=== PATIENT | female | born 1995 | race Caucasian/White ===

== ENCOUNTER → 2018-09-16 | Outpatient (CLI) | payer BC ==
[2018-09-16 19:04] LABS: BASO % 0.3 % (0.0-1.0); EOS # 0.2 10^3/uL (0.0-0.50); EOS % 1.9 % (0.0-3.0); HEMATOCRIT 39.2 % (36.0-47.0); HEMOGLOBIN 13.2 g/dl (12.0-15.5); LYMPH # 1.7 10^3/uL (1.5-6.5); LYMPH % 22.4 % (24.0-44.0); MEAN CORPUSCULAR HEMOGLOBIN 28.1 pg (27.0-33.0); MEAN CORPUSCULAR HGB CONC 33.7 g/dl (32.0-36.5); MEAN CORPUSCULAR VOLUME 83.6 fl (80.0-96.0); MONO # 0.4 10^3/uL (0.0-0.8); MONO % 5.4 % (0.0-5.0); NEUTROPHILS # 5.4 10^3/uL (1.8-7.7); NEUTROPHILS % 69.9 % (36.0-66.0); PLATELET COUNT, AUTOMATED 217 10^3/uL (150-450); RED BLOOD COUNT 4.69 10^6/uL (4.00-5.40); WHITE BLOOD COUNT 7.7 10^3/uL (4.0-10.0)
[2018-09-16 21:30] LABS: CHLAMYDIA DNA AMPLIFICATION NEGATIVE (NEGATIVE); GC DNA AMPLIFICATION NEGATIVE (NEGATIVE)
[2018-09-17 11:08] LABS: HIV 1&2 SCREEN CENTAUR NEGATIVE (NEGATIVE); RUBELLA IgG QUALITATIVE IMMUNE (IMMUNE)
== END ==
LOC: M SMT 15:51
PROVIDERS: ATTEND Advanced Practice Midwife
DX: Z36.89 Encounter for other specified antenatal screening (principal); Z3A.08 8 weeks gestation of pregnancy

== ENCOUNTER → 2018-10-15 | Outpatient (REF) | payer BC, OTHER | LOC: M LAB REF 13:03 | PROVIDERS: ATTEND Advanced Practice Midwife | DX: Z34.01 Encounter for supervision of normal first pregnancy, first trimester (principal); Z3A.00 Weeks of gestation of pregnancy not specified | CPT/HCPCS: 87086; G0123 ==

== ENCOUNTER → 2018-12-08 | Outpatient (REF) | payer BC | LOC: M LAB REF 17:23 | PROVIDERS: ATTEND Advanced Practice Midwife | DX: Z34.02 Encounter for supervision of normal first pregnancy, second trimester (principal); Z3A.00 Weeks of gestation of pregnancy not specified ==

== ENCOUNTER → 2018-12-09 | Outpatient (CLI) | payer BC ==
--- NOTE | 2018-12-10 08:13 | REP ---
OBSTETRIC SONOGRAPHY: HISTORY: Supervision of . For anatomy. Second trimester study. FINDINGS: Scanning through the gravid uterus demonstrates a viable single intrauterine gestation in a breech lie. motion is observed, and heart rate is recorded at 149 beats per minute. An anterior grade 0 placenta is seen without evidence of previa or abruption. Amniotic fluid is subjectively normal. Closed cervical length is measured transabdominally at 3.5 cm. No extrauterine abnormality is observed. Exam quality was inhibited some degree by position. No anomaly is seen. nose and lips are seen but facial profile is less than adequately seen. Similarly, less than optimal visualization is achieved in the right ventricular cardiac outflow tract and both lower extremities. The following additional anatomic structures are identified and felt to be unremarkable: cranium, choroid plexus, cavum, cerebellum and posterior fossa, lungs, four-chamber heart with left ventricular outflow tract view, diaphragm, left-sided stomach, abdominal wall cord insertion, three-vessel umbilical cord, kidneys and bladder, spine, upper extremities. BIOMETRY CHART: BPD 4.8 cm = 20 weeks 4 days Head circumference 17.7 cm = 20 weeks 1 day Abdominal circumference 16.1 cm = 21 weeks 2 days Femur length 3.4 cm = 20 weeks 5 days Humeral length 3.3 cm = 21 weeks 2 days HC/AC ratio normal 1.10 Cephalic index normal 0.76 Estimated weight 385 grams, 0 pounds 13 ounces, 76 percentile for 20 weeks 1 day. IMPRESSION: Viable single intrauterine gestation at 20 weeks 6 days by today's composite criteria. WILLIS by today's sonography April 22, 2019. facial profile, right ventricular cardiac outflow tract, and lower extremity views are less than optimally achieved today. Breech lie. Electronically Signed by Robbie Johnson MD 12/10/2018 09:13 A
== END ==
LOC: M RAD 16:07
PROVIDERS: ATTEND Obstetrics & Gynecology
DX: Z34.82 Encounter for supervision of other normal pregnancy, second trimester (principal); Z3A.20 20 weeks gestation of pregnancy; O32.1XX1 Maternal care for breech presentation, fetus 1

== ENCOUNTER → 2019-01-23 | Outpatient (CLI) | payer BC ==
--- NOTE | 2019-01-24 09:17 | REP ---
OB FOLLOWUP ULTRASOUND: HISTORY: Followup anatomy. COMPARISON: 12/09/2018 A single intrauterine is present in breech presentation. Biparietal diameter 6.9 cm, gestational age 27 weeks 6 days. Head circumference 25 cm, gestational age 27 weeks 1 day. Abdominal circumference 21.7 cm, gestational age 26 weeks 1 day. Femur length 4.7 cm, gestational 25 weeks, 6 days. Humerus length 4.4 cm, gestational age 26 weeks 3 days. heart rate is 163 beats per minute. weight is 912 grams. Visualized anatomy is normal. The placenta is anterior. There is no placenta previa or abruption. The amniotic fluid is within normal limits. Cervix length is 3.5 cm. IMPRESSION: A single intrauterine is present in breech presentation. Gestational age by ultrasound is 26 weeks 5 days. Electronically Signed by Jacky Archer MD 01/24/2019 09:27 A
== END ==
LOC: M RAD 15:18
PROVIDERS: ATTEND Obstetrics & Gynecology
DX: Z34.02 Encounter for supervision of normal first pregnancy, second trimester (principal)

== ENCOUNTER → 2019-02-06 | Outpatient (CLI) | payer BC | LOC: M LAB 16:08 | PROVIDERS: ATTEND Advanced Practice Midwife | DX: Z34.02 Encounter for supervision of normal first pregnancy, second trimester (principal); Z3A.00 Weeks of gestation of pregnancy not specified | CPT/HCPCS: 36415; 86850; 86901; J2790 ==

== ENCOUNTER → 2019-04-01 | Outpatient (REF) | payer BC ==
[~2019-04-01] MED LIST: ACET-683 PO; ALLE24TA7 PO; IBUP80TA PO; PRENTAB9 PO
== END ==
LOC: M LAB REF 17:13
PROVIDERS: ATTEND Advanced Practice Midwife
DX: Z34.03 Encounter for supervision of normal first pregnancy, third trimester (principal); Z3A.00 Weeks of gestation of pregnancy not specified

== ENCOUNTER 2019-04-27 13:20 | Inpatient (IN) | payer BC ==
[2019-04-27] VITALS (25 sets, daily range): BP systolic 96–165; BP diastolic 49–87
[~2019-04-27] VITALS: Ht 165.1 cm; Wt 106.0 kg
[2019-04-27] MEDS ORDERED: PENICILLIN G POTASSIUM IV 5 MU in D5W MINI-BAG PLUS 100 ML IV STA (13:38)
[2019-04-27] MEDS ORDERED: PRENTAB9 PO (13:42)
[2019-04-27] MEDS ORDERED: OXYTOCIN DRIP 30 UNITS in APPROPRIATE DILUENT 1 EA IV SCH (13:45)
[2019-04-27 15:18] LABS: HEMATOCRIT 34.7 % (36.0-47.0); HEMOGLOBIN 11.6 g/dl (12.0-15.5); MEAN CORPUSCULAR HGB CONC 33.4 g/dl (32.0-36.5); MEAN CORPUSCULAR VOLUME 86.8 fl (80.0-96.0); PLATELET COUNT, AUTOMATED 151 10^3/uL (150-450); WHITE BLOOD COUNT 9.5 10^3/uL (4.0-10.0)
[2019-04-27] MEDS ORDERED: ALLE24TA7 PO (15:35)
[2019-04-27] MEDS: LR 1,000 ML IV SCH ×2 (15:38→23:51)
[2019-04-27 15:58] LABS: ALT/SGPT 14 U/L (12-78); BILIRUBIN,TOTAL 0.4 MG/DL (0.2-1.0); CREATININE FOR GFR 0.54 MG/DL (0.55-1.30); GLOMERULAR FILTRATION RATE > 60.0 (>60); LDH LACTATE DEHYDROGENASE 203 U/L (84-246); URIC ACID 3.6 MG/DL (2.6-6.0)
--- NOTE | 2019-04-27 16:52 | HPE ---
DATE OF ADMISSION: 04/27/2019 HISTORY OF THE PRESENT ILLNESS: The patient is a 23-year-old female who is a 1, para 0 at 40 weeks gestation with an estimated date of delivery (WILLIS) of 04/27/2019 based off of her last menstrual period (LMP) and consistent with her first trimester ultrasound. The patient initiated care in her first trimester with [facility]. Patient care has been uncomplicated. She presents to the office today with complaints of spontaneous rupture of membranes and clear fluid at 10:00 a.m. this morning. She denies any regular contractions. Patient reports fluid is clear with large gushes. Denies vaginal bleeding. Reports active movement. ALLERGIES: ZITHROMAX and CLINDAMYCIN. CURRENT MEDICATIONS: - vitamins - loratadine 10 mg PAST MEDICAL HISTORY: Asthma as a child. Varicella as a child. No current medications. SURGICAL HISTORY: [place] teeth extraction. FAMILY HISTORY: Lupus, diabetes, hypertension, heart disease. SOCIAL HISTORY: The patient is . She denies any history of being a smoker. She denies any history of alcohol abuse during . She does report occasional use of alcohol prior to . She denies any history of illicit drug use during or prior to . She denies any history of abuse. She denies any history of any sexually transmitted infection. LABS: The patient's blood type is O negative with an antibody screen that is negative. Her hemoglobin and hematocrit in her first trimester was 13.2, 39.2 with platelets of 217. Her Pap smear, which was done 10/14/2018 was normal. Rubella is immune. VDRL is nonreactive. Her urine specimen was contaminated. Her hepatitis B surface antigen is negative. HIV is negative. Hepatitis C is negative. Gonorrhea and chlamydia are both negative. She declined genetic screening and carrier screen testing. Her 1-hour glucose tolerance test was 116. Her hemoglobin and hematocrit and her early third trimester was 11.4 and 34 with platelets of 181. She received her RhoGam on 02/13/2019. HIV in the third trimester is negative with a GBS that is positive. VITAL SIGNS: Temperature is 99, heart rate is 70, respiratory rate is 18, blood pressure is 142/77. heart rate 130, moderate variability, positive accelerations, no decelerations. Contractions are irregular. Sterile speculum exam (SSE) done in the office shows a large amount of clear fluid in the vaginal vault. Sterile vaginal exam (SVE): 2 cm dilated, 90% effaced, -2 station. PHYSICAL ASSESSMENT: General: Alert and oriented times three. Respiratory: Regular rate with no use of accessory muscles. Abdomen: Gravid. Cephalic presentation noted via Rickey's and SVE. Nontender to touch. Lower Extremities: Generalized edema. No clonus. ASSESSMENT: Intrauterine at 40 weeks gestation, GBS positive, category 1 heart rate tracing, spontaneous rupture of membranes. PLAN: Admit patient to labor and delivery. Out of bed ad antonina. Saline lock and labs per unit protocol. Clear liquid diet. IV Pitocin options offered to patient due to ruptured membranes. Reviewed with prolonged ruptured increased risk for fever and chorioamnionitis. Antibiotics to be started for Group B Streptococcus (GBS) prophylaxis. Preeclamptic profile ordered due to slightly elevated blood pressure. Will continue to monitor. Anticipate cervical change and spontaneous vaginal delivery. Anesthesia consult per patient's request.
--- NOTE | 2019-04-27 19:03 | IPNPDOC ---
Obstetrical Progress Note Date of Service Apr 27, 2019 Subjective Patient reports she is feeling her contractions. Desires to learn more about pain management options. Objective Vital Signs Date Time Temp Pulse Resp B/P (MAP) Pulse Ox O2 Delivery O2 Flow Rate FiO2 04/27/19 18:37 99.4 76 20 141/76 (97) Assessment Heart Rate (FHR): 140 Variability: Moderate Accelerations: Positive Decelerations: Early Heart Rate Tracing: Category I Tocometer Contractions: Yes Frequency: regular, other (1-4 minutes) Sterile Vaginal Examination Dilation: 4 cm (4-5 cm) Effacement (%): 100% Station: -1 Postion/Presentation: Cephalic presentation Assessment and Plan Age: 23 : 1 Term: 0 Pre-term: 0 Abortions: 0 Livin EGA at Admission: 40 Status: Reassuring Group B Streptococcus: Positive Anticipate: Vaginal Delivery Additional Comments Options reviewed with patient for pain management. Patient undecided at this time. GHTN diagnosed. Preeclamptic labs are normal at this time. HEMA GONSALES CNM Apr 27, 2019 19:03
[2019-04-27] MEDS ORDERED: PROMETHAZINE INJ 25 MG/ML VIAL (J2550) IV ONE (19:15)
[2019-04-27] MEDS ORDERED: BUTORPHANOL 2 MG/ML INJ (J0595) IV ONE (19:15)
[2019-04-27] MEDS: PENICILLIN G POTASSIUM IV 2.5 MU in APPROPRIATE DILUENT 1 EA IV SCH ×2 (19:50→23:51)
[2019-04-27] MEDS ORDERED: diphenhydrAMINE INJ 50MG/ML VIAL (J1200) IV ONE (20:00)
[2019-04-27] MEDS ORDERED: FENTANYL 2MCG/ML ROPIVACAINE 0.2% IN 0.9% NACL 100ML IVBAG As Ordered ONE (22:11)
[2019-04-27] MEDS ORDERED: ePHEDrine SULFATE 25 MG/5 ML(5MG/ML) SYRINGE As Ordered ONE (23:36)
[2019-04-27] MEDS ORDERED: LACTATED RINGER'S 1000 ML IV PRN (23:45)
[2019-04-27] MEDS ORDERED: FENTANYL/ROPIVACAINE/NACL BAG 100 ML EPIDURAL SCH (23:45)
[2019-04-27] MEDS ORDERED: EPIDURAL/PCA KEYS XX PRN (23:45)
[2019-04-27] MEDS ORDERED: ePHEDrine SULFATE 25 MG/5 ML(5MG/ML) SYRINGE IV PRN (23:45)
[2019-04-27] MEDS ORDERED: NALOXONE INJ 0.4 MG/1 ML VIAL (J2310) IV PRN (23:45)
[2019-04-27] MEDS ORDERED: REFRIGERATOR IV KEYS XX PRN (23:45)
[2019-04-27] MEDS ORDERED: EPIDURAL COMMENT XX SCH (23:45)
[2019-04-27] MEDS ORDERED: ONDANSETRON 4MG/2ML VIAL (J2405) IV PRN (23:45)
[2019-04-27] MEDS ORDERED: diphenhydrAMINE INJ 50MG/ML VIAL (J1200) IV PRN (23:45)
[2019-04-28] VITALS (29 sets, daily range): BP systolic 108–149; BP diastolic 53–64
--- NOTE | 2019-04-28 00:15 | IPNPDOC ---
Obstetrical Progress Note Date of Service Apr 28, 2019 Subjective Patient reports she is comfortable with her epidural. Objective Vital Signs Date Time Temp Pulse Resp B/P (MAP) Pulse Ox O2 Delivery O2 Flow Rate FiO2 04/27/19 19:45 18 04/27/19 18:37 99.4 76 141/76 (97) Assessment Heart Rate (FHR): 150 Variability: Minimal to moderate Accelerations: None Decelerations: Late Heart Rate Tracing: Category I Tocometer Contractions: Yes Frequency: regular Sterile Vaginal Examination Dilation: complete Station: Other (0 to +1) Postion/Presentation: Cephalic presentation Assessment and Plan EGA at Admission: 40 Status: Reassuring Group B Streptococcus: Positive Anticipate: Vaginal Delivery Additional Comments Category II tracing after epidural. Has continued to improve with position change, oxygen, and fluid bolus. Will continue to observe and will start pushing soon. Reviewed potential for section if HR does not improve. Patient and verbalized understanding. HEMA GONSALES CNM Apr 28, 2019 00:15
[2019-04-28] MEDS ORDERED: ACETAMINOPHEN 500 MG TAB PO ONE (01:15)
--- NOTE | 2019-04-28 02:04 | IPNPDOC ---
Obstetrical Progress Note Date of Service Apr 28, 2019 Subjective Patient is pushing well with contractions. Objective Vital Signs Date Time Temp Pulse Resp B/P (MAP) Pulse Ox O2 Delivery O2 Flow Rate FiO2 04/27/19 19:45 18 04/27/19 18:37 99.4 76 141/76 (97) Assessment Heart Rate (FHR): 170 Variability: Minimal Accelerations: None Decelerations: Variable Heart Rate Tracing: Category II Tocometer Contractions: Yes Frequency: regular Assessment and Plan EGA at Admission: 40 Weeks & Days 40.1 Status: Non-reassuring Additional Comments IV Pitocin is at 2 mu/min. Dr. Rosenberg notified of tachycardia with minimal variability. He will be in to access patient. Patient pushing well. tachycardia for 30 minutes. Temporal temperature 101.6 but oral taken and 99.6. Given Tylenol PO 1000 mg. HEMA GONSALES CNM Apr 28, 2019 02:04
[2019-04-28 03:45] LABS: CORD GAS ABE A -12.5; CORD GAS HCO3 A 16.3 MEQ/L; CORD GAS O2 SAT A 45.8 %; CORD GAS PCO2 A 47.8 mmHg; CORD GAS PH A 7.15 UNITS; CORD GAS PO2 A 25.7 mmHg; CORD GAS SBC A 13.9 MEQ/L; CORD GAS TCO2 A 17.7 MEQ/L
[2019-04-28 03:46] LABS: CORD GAS ABE V -11.2; CORD GAS HCO3 V 15.2 MEQ/L; CORD GAS O2 SAT V 59.5 %; CORD GAS PH V 7.244 UNITS; CORD GAS PO2 V 29.1 mmHg; CORD GAS SBC V 15.1 MEQ/L; CORD GAS TCO2 V 16.3 MEQ/L
[2019-04-28] MEDS ORDERED: OXYTOCIN DRIP 30 UNITS in APPROPRIATE DILUENT 1 EA IV SCH (04:06)
[2019-04-28] MEDS ORDERED: IBUPROFEN 600 MG TAB PO PRN (04:15)
[2019-04-28] MEDS ORDERED: METHYLERGONOVINE MALEATE 0.2 MG TAB PO PRN (04:15)
[2019-04-28] MEDS ORDERED: DOCUSATE SODIUM 100 MG CAP PO PRN (04:15)
[2019-04-28] MEDS ORDERED: DIBUCAINE 1% OINTMENT 30GM TOP PRN (04:15)
[2019-04-28] MEDS ORDERED: ANUSOL HC CREAM 30GM TOP PRN (04:15)
[2019-04-28] MEDS ORDERED: RHOGAM 300 MCG (1500 IU) INJ (J2790) IM SCH (04:15)
[2019-04-28] MEDS ORDERED: MEASLES,MUMPS,RUBELLA VACCINE INJ (MMR-II) (90707) SC SCH (04:15)
[2019-04-28] MEDS ORDERED: ACETAMINOPHEN TAB 650MG DOSE (2X325MG) PO PRN (04:15)
[2019-04-28] MEDS: ACETAMINOPHEN 500 MG TAB PO PRN ×2 (06:13→13:35)
[2019-04-28] MEDS: PRENATAL VITAMINS CHEWABLE TABLET PO SCH (08:08)
--- NOTE | 2019-04-28 10:50 | DN ---
DATE OF DELIVERY: 04/28/2019 TIME: 0326 STATUS: Delivered. Spontaneous vaginal delivery. PROVIDER: Leigh Ann Michael CNM, CARLENE ANESTHESIA: Epidural. ESTIMATED BLOOD LOSS: 250 mL. FINDINGS: Male, 7 pounds 13 ounces, 3542 grams, Apgars 6/7/8, multiple variable decelerations, tachycardia, multiple late decelerations. The patient is a 23-year-old female, who is now a 1, para 1-0-0-1, who presented to the office with complaints of spontaneous rupture of membrane. She received IV Pitocin to help augment her labor. The patient also received an epidural for pain management. She progressed to fully dilated at 2354 and started pushing at 0104. Dr. Rosenberg was notified of patient's strip and present during second half of the pushing stage and for delivery of the fetus. The patient pushed to a living male in the right occiput transverse (ROT) position at 0326. The anterior shoulder delivered with ease and the corpus immediately followed. The baby was placed on the maternal abdomen and was brought over to the warming table by the nurses for further assessment. This was all done after the cord was clamped times two and cut by the father of the baby. Cord gases were obtained. The arterial cord gas was 7.15 and venous cord gas was 7.244. The placenta delivered spontaneously and intact at 0331. Uterine hemostasis was achieved via rapid infusion of IV Pitocin and fundal massage. The vagina, cervix and perineum was inspected and found to have a second degree perineal laceration that was repaired with a 3-[address]-1. The baby was transported to the intensive care unit (NICU) for further observation and for transitional timing. Mom and baby are both in stable condition. All counts of instruments and sponges were correct and accounted for. Mom plans to breast feed her .
[2019-04-28] MEDS: IBUPROFEN 800 MG TAB PO PRN (19:55)
[2019-04-29 01:49] VITALS: BP 107/54
[2019-04-29 06:00] VITALS: BP 122/58
[2019-04-29] MEDS ORDERED: IBUP80TA PO (06:45)
[2019-04-29] MEDS ORDERED: ACET-683 PO (06:45)
[2019-04-29] MEDS: IBUPROFEN 800 MG TAB PO PRN (08:09)
[2019-04-29] MEDS: PRENATAL VITAMINS CHEWABLE TABLET PO SCH (08:09)
[2019-04-29 10:00] VITALS: BP 114/55
== END 2019-04-29 14:00 | disposition home or self-care (01) | DRG 560 ==
LOC: M LDO 13:20 → M LDI 13:39 → M PED 04-28 06:09
PROVIDERS: ADMIT Advanced Practice Midwife; ATTEND Advanced Practice Midwife
PROC: 10E0XZZ Delivery of Products of Conception, External Approach (ICD-10-PCS; principal; 2019-04-28)
PROC: 0HQ9XZZ Repair Perineum Skin, External Approach (ICD-10-PCS; 2019-04-28)
DX: O48.0 Post-term pregnancy (principal); Z37.0 Single live birth; Z3A.40 40 weeks gestation of pregnancy; Z88.8 Allergy status to other drugs, medicaments and biological substances; O70.1 Second degree perineal laceration during delivery; O76 Abnormality in fetal heart rate and rhythm complicating labor and delivery; O99.820 Streptococcus B carrier state complicating pregnancy

== ENCOUNTER → 2020-02-26 | Outpatient (REF) | payer BC | LOC: M SFHCWAGY 09:57 | PROVIDERS: ATTEND Advanced Practice Midwife | DX: Z12.4 Encounter for screening for malignant neoplasm of cervix (principal) | CPT/HCPCS: 87624; G0123 ==

== ENCOUNTER → 2021-02-01 | Outpatient (REF) | payer BC ==
[2021-02-01 17:27] LABS: HEMATOCRIT 41.6 % (36.0-47.0); HEMOGLOBIN 13.4 g/dl (12.0-15.5); MEAN CORPUSCULAR HEMOGLOBIN 28.2 pg (27.0-33.0); MEAN CORPUSCULAR HGB CONC 32.2 g/dl (32.0-36.5); MEAN CORPUSCULAR VOLUME 87.6 fl (80.0-96.0); PLATELET COUNT, AUTOMATED 204 10^3/uL (150-450); RED BLOOD COUNT 4.75 10^6/uL (4.00-5.40); WHITE BLOOD COUNT 9.4 10^3/uL (4.0-10.0)
[2021-02-01 17:41] LABS: ALBUMIN 4.1 GM/DL (3.2-5.2); ALT/SGPT 24 U/L (12-78); BILIRUBIN,TOTAL 0.2 MG/DL (0.2-1.0); BLOOD UREA NITROGEN 8 MG/DL (7-18); CALCIUM LEVEL 9.4 MG/DL (8.5-10.1); CARBON DIOXIDE LEVEL 26 MEQ/L (21-32); CHLORIDE LEVEL 109 MEQ/L (98-107); CREATININE FOR GFR 0.64 MG/DL (0.55-1.30); GLOMERULAR FILTRATION RATE > 60.0 (>60); GLUCOSE, FASTING 74 MG/DL (70-100); HCG, SERUM QUANTITATIVE 1100 MIU/ML; POTASSIUM SERUM 3.7 MEQ/L (3.5-5.1); SODIUM LEVEL 140 MEQ/L (136-145); TOTAL PROTEIN 7.5 GM/DL (6.4-8.2)
== END ==
LOC: M PLALAB 15:39
PROVIDERS: ATTEND Advanced Practice Midwife
DX: Z34.90 Encounter for supervision of normal pregnancy, unspecified, unspecified trimester (principal)

== ENCOUNTER → 2021-02-03 | Outpatient (REF) | payer BC | LOC: M PLALAB 15:08 | PROVIDERS: ATTEND Advanced Practice Midwife | DX: Z34.80 Encounter for supervision of other normal pregnancy, unspecified trimester (principal); Z3A.00 Weeks of gestation of pregnancy not specified ==

== ENCOUNTER → 2021-05-19 | Outpatient (CLI) | payer BC ==
--- NOTE | 2021-05-19 15:16 | REP ---
INDICATION: ANATOMY. COMPARISON: None. TECHNIQUE: Transabdominal obstetric sonography. FINDINGS: Scanning through the gravid uterus demonstrates a viable single intrauterine gestation in variable lie. motion is observed and heart rate is recorded at 144 beats per minute. A anterior placenta is seen, grade 0, without evidence of placenta previa. Closed cervical length is measured at 3.8 cm transabdominally. No extrauterine abnormality is observed. Amniotic fluid is subjectively normal. No anomaly is seen. The following anatomic structures are identified and felt to be sonographically unremarkable: cranium, choroid plexus, cavum, cerebellum and posterior fossa, face and profile, lungs, four-chamber heart with left and right ventricular outflow tract views, diaphragm, left-sided stomach, abdominal wall cord insertion, three-vessel umbilical cord, kidneys and bladder, and upper and lower extremities. spine is less than optimally visualized today due to variable position. Biometry chart: BPD 4.7 cm, 20 weeks 1 day Head circumference 17.1 cm, 19 weeks 5 days Abdominal circumference 14.8 cm, 20 weeks 1 day Femur length 3.8 cm, 20 weeks 5 days Humeral length 3.2 cm, 20 weeks 6 days HC AC ratio normal 1.15 Cephalic index normal 0.76 Estimated weight 344 g, 0 lb 12 oz, 62nd percentile for 20 weeks 0 days IMPRESSION: Viable single intrauterine gestation at 20 weeks 2 days by today's composite sonographic criteria. WILLIS by today's sonography October 04, 2021. No complication identified. Expected gestational age estimate based on known WILLIS of October 06, 2021 is 20 weeks 0 days. spine is less than optimally seen today due to position. <Electronically signed by Babar Johnson > 05/19/21 2645
== END ==
LOC: M WHC 13:52
PROVIDERS: ATTEND Advanced Practice Midwife
DX: Z34.82 Encounter for supervision of other normal pregnancy, second trimester (principal)

== ENCOUNTER → 2021-06-01 | Outpatient (CLI) | payer BC | LOC: M LABSMTC 11:07 | PROVIDERS: ATTEND Family Medicine | DX: Z11.52 Encounter for screening for COVID-19 (principal) ==

== ENCOUNTER → 2021-06-12 | Outpatient (CLI) | payer BC ==
--- NOTE | 2021-06-12 18:33 | REP ---
INDICATION: F/U ANATOMY. COMPARISON: 05/19/2021. TECHNIQUE: Real-time sonographic evaluation of the gravid uterus performed. FINDINGS: Estimated gestational age is23 weeks 3 days, EDC 10/06/2021. Today's measurements indicate appropriate growth. Presentation: Breech Placenta anterior, grade 1, without evidence of placenta previa. heart rate is recorded at 143 beats per minute. Amniotic fluid is subjectively normal. Closed cervical length is measured at 4.5 cm. Biometry chart: BPD: 58 mm, 23 weeks 6 days, 61st percentile. HC: 217 mm, 23 weeks 5 days, 59th percentile AC: 187 mm, 23 weeks 4 days, 52nd percentile Femur length: 41 mm, 23 weeks 2 days, 48th percentile HC to AC ratio: 1.16, normal range 1.03-1.22. Estimated weight: 599g, 45th percentile. anatomy: The spine is visualized and is grossly unremarkable. IMPRESSION: Viable single intrauterine gestation as above. <Electronically signed by Ottoniel Ayala > 06/12/21 2141
== END ==
LOC: M WHC 15:07
PROVIDERS: ATTEND Obstetrics & Gynecology
DX: Z34.82 Encounter for supervision of other normal pregnancy, second trimester (principal); Z3A.23 23 weeks gestation of pregnancy

== ENCOUNTER → 2021-06-22 | Outpatient (CLI) | payer BC | LOC: M LABSMTC 09:07 | PROVIDERS: ATTEND Family Medicine | DX: Z11.52 Encounter for screening for COVID-19 (principal) ==

== ENCOUNTER → 2021-07-07 | Outpatient (CLI) | payer BC ==
[2021-07-07 17:14] LABS: HEMATOCRIT 35.8 % (36.0-47.0); HEMOGLOBIN 11.9 g/dl (12.0-15.5); MEAN CORPUSCULAR HGB CONC 33.2 g/dl (32.0-36.5); MEAN CORPUSCULAR VOLUME 87.3 fl (80.0-96.0); PLATELET COUNT, AUTOMATED 178 10^3/uL (150-450); WHITE BLOOD COUNT 9.8 10^3/uL (4.0-10.0)
[2021-07-07 18:44] LABS: GC DNA AMPLIFICATION NEGATIVE (NEGATIVE)
== END ==
LOC: M PLALAB 13:05
PROVIDERS: ATTEND Obstetrics & Gynecology
DX: Z34.82 Encounter for supervision of other normal pregnancy, second trimester (principal)

== ENCOUNTER → 2021-09-08 | Outpatient (REF) | payer BC | LOC: M SFHCWAGY 16:40 | PROVIDERS: ATTEND Specialist | DX: Z34.03 Encounter for supervision of normal first pregnancy, third trimester (principal) ==

== ENCOUNTER 2021-10-05 22:36 | Inpatient (IN) | payer BC ==
[~2021-10-05] VITALS: Ht 165.1 cm; Wt 102.5 kg
[2021-10-05] MEDS ORDERED: PENICILLIN G POTASSIUM IV 5 MU in D5W MINI-BAG PLUS 100 ML IV STA (23:14)
[2021-10-05 23:44] LABS: BASO % 0.3 % (0.0-1.0); EOS # 0.1 10^3/uL (0.0-0.5); EOS % 1.1 % (0.0-3.0); HEMATOCRIT 34.3 % (36.0-47.0); HEMOGLOBIN 11.4 g/dl (12.0-15.5); LYMPH # 2.2 10^3/uL (1.5-5.0); LYMPH % 19.2 % (24.0-44.0); MEAN CORPUSCULAR HEMOGLOBIN 27.5 pg (27.0-33.0); MEAN CORPUSCULAR HGB CONC 33.2 g/dl (32.0-36.5); MEAN CORPUSCULAR VOLUME 82.9 fl (80.0-96.0); MONO # 0.7 10^3/uL (0.0-0.8); MONO % 5.8 % (2.0-8.0); NEUTROPHILS # 8.4 10^3/uL (1.5-8.5); NEUTROPHILS % 72.9 % (36.0-66.0); PLATELET COUNT, AUTOMATED 170 10^3/uL (150-450); RED BLOOD COUNT 4.14 10^6/uL (4.00-5.40); WHITE BLOOD COUNT 11.6 10^3/uL (4.0-10.0)
[2021-10-05] MEDS ORDERED: LEVOTAB10 PO (23:46)
[2021-10-05] MEDS ORDERED: HOME MED LIST COMPLETE! XX SCH (23:50)
[2021-10-06] VITALS (27 sets, daily range): BP systolic 116–163; BP diastolic 57–115
[2021-10-06] MEDS ORDERED: FENTANYL 2MCG/ML ROPIVACAINE 0.2% IN 0.9% NACL 100ML IVBAG As Ordered ONE (00:43)
[2021-10-06] MEDS ORDERED: REFRIGERATOR IV KEYS XX PRN (01:22)
[2021-10-06] MEDS ORDERED: ONDANSETRON 4MG/2ML VIAL IV PRN (01:22)
[2021-10-06] MEDS ORDERED: ePHEDrine SULFATE 25 MG/5 ML(5MG/ML) SYRINGE IV PRN (01:22)
[2021-10-06] MEDS ORDERED: NALOXONE INJ 0.4MG/1ML VIAL (J2310 PER 1MG) IV PRN (01:22)
[2021-10-06] MEDS ORDERED: FENTANYL/ROPIVACAINE/NACL BAG 100 ML EPIDURAL SCH (01:22)
[2021-10-06] MEDS ORDERED: EPIDURAL COMMENT XX SCH (01:22)
[2021-10-06] MEDS ORDERED: EPIDURAL/PCA KEYS XX PRN (01:22)
[2021-10-06] MEDS ORDERED: diphenhydrAMINE 50MG/ML VIAL (J1200) IV PRN (01:22)
[2021-10-06] MEDS ORDERED: LACTATED RINGER'S 1000 ML IV PRN (01:22)
[2021-10-06] MEDS ORDERED: OXYTOCIN 30 UNITS IN 0.9% NaCl 500ML IV BAG (J2590) As Ordered ONE (02:51)
[2021-10-06] MEDS ORDERED: PENICILLIN G POTASSIUM IV 2.5 MU in IV 1 EA IV SCH (04:00)
[2021-10-06] MEDS ORDERED: RHOGAM 300 MCG (1500 IU) INJ (J2790) IM SCH (05:55)
[2021-10-06] MEDS ORDERED: IBUPROFEN 800 MG TAB PO PRN (05:55)
[2021-10-06] MEDS ORDERED: MOM 30ML SUSPENSION UDC PO PRN (05:55)
[2021-10-06] MEDS ORDERED: METOCLOPRAMIDE INJ 10MG/2ML VIAL (J2765 PER 1) IV PRN (05:55)
[2021-10-06] MEDS ORDERED: DOCUSATE SODIUM 100MG CAPSULE PO PRN (05:55)
[2021-10-06] MEDS ORDERED: OXYTOCIN DRIP 30 UNITS in IV 1 EA IV SCH (05:55)
[2021-10-06] MEDS ORDERED: ACETAMINOPHEN TAB 650MG DOSE (2X325MG) PO PRN (05:55)
[2021-10-06] MEDS ORDERED: DIBUCAINE 1% OINTMENT 30GM TOP PRN (05:55)
[2021-10-06] MEDS ORDERED: METHYLERGONOVINE MALEATE 0.2 MG TAB PO PRN (05:55)
[2021-10-06] MEDS ORDERED: ANUSOL HC CREAM 30GM TOP PRN (05:55)
[2021-10-06] MEDS ORDERED: MEASLES,MUMPS,RUBELLA VACCINE INJ (MMR-II) (90707) SC SCH (05:55)
[2021-10-06] MEDS: PRENATAL VITAMINS CHEWABLE TABLET PO SCH (07:41)
[2021-10-06] MEDS: IBUPROFEN 600MG TAB PO PRN ×2 (11:37→21:01)
[2021-10-06] MEDS: ACETAMINOPHEN 500 MG TAB PO PRN (15:46)
[2021-10-07 05:48] VITALS: BP 112/57
[2021-10-07] MEDS: ACETAMINOPHEN 500 MG TAB PO PRN (06:07)
[2021-10-07] MEDS: PRENATAL VITAMINS CHEWABLE TABLET PO SCH (08:20)
[2021-10-07] MEDS ORDERED: IBUP-1022 PO (10:27)
[2021-10-07] MEDS ORDERED: COLA100C5 PO (10:27)
[2021-10-07] MEDS ORDERED: ACET-683 PO (10:27)
== END 2021-10-07 16:05 | disposition home or self-care (01) | DRG 560 ==
LOC: M LDO 22:36 → M LDI 23:09 → M OBS 10-06 06:34
PROVIDERS: ADMIT Obstetrics & Gynecology; ATTEND Obstetrics & Gynecology
PROC: 3E033VJ Introduction of Other Hormone into Peripheral Vein, Percutaneous Approach (ICD-10-PCS; 2021-10-05)
PROC: 10E0XZZ Delivery of Products of Conception, External Approach (ICD-10-PCS; principal; 2021-10-06)
PROC: 0HQ9XZZ Repair Perineum Skin, External Approach (ICD-10-PCS; 2021-10-06)
DX: O99.824 Streptococcus B carrier state complicating childbirth (principal); Z3A.40 40 weeks gestation of pregnancy; O70.0 First degree perineal laceration during delivery; Z37.0 Single live birth; Z88.1 Allergy status to other antibiotic agents; Z20.822 Contact with and (suspected) exposure to COVID-19